=== PATIENT | female | born 1960 ===

== ENCOUNTER 2024-01-17 10:24 | Day surgery (SDC) | payer MEDICARE ==
--- NOTE | 2024-01-17 09:52 | P.GSHP ---
History of Present Illness H&P Date: 01/17/24 CHIEF COMPLAINT: GERD and colon screen HISTORY OF PRESENT ILLNESS: The patient is a 63-year-old female who presents with gastroesophageal reflux disease and need for colon screen. Upper and lower endoscopy were offered for further evaluation and management. PAST MEDICAL HISTORY: Please see list. PAST SURGICAL HISTORY: Please see list. MEDICATIONS: Please see list. ALLERGIES: Please see list. SOCIAL HISTORY: No illicit drug use FAMILY HISTORY: No reports of Crohn disease or ulcerative colitis. REVIEW OF ORGAN SYSTEMS: CONSTITUTIONAL: No reports of fevers or chills. GI: Denies any blood in stools or constipation. PHYSICAL EXAM: VITAL SIGNS: Stable GENERAL: Well-developed pleasant in no acute distress. HEENT: No scleral icterus. Extraocular movements grossly intact. Moist buccal mucosa. NECK: Supple without lymphadenopathy. CHEST: Unlabored respirations. Equal bilateral excursions. CARDIOVASCULAR: Regular rate and rhythm. Distal 2+ pulses. ABDOMEN: Soft, nondistended. MUSCULOSKELETAL: No clubbing, cyanosis, or edema. ASSESSMENT: 1. Gastroesophageal reflux disease 2. Colon screen. PLAN: 1. Recommend proceeding with an upper and lower endoscopy Past Medical History Past Medical History: Hyperlipidemia, Hypertension Additional Past Medical History / Comment(s): occasional skipped heartbeat, difficulty swallowing History of Any Multi-Drug Resistant Organisms: None Reported Past Surgical History: Tubal Ligation Past Anesthesia/Blood Transfusion Reactions: No Reported Reaction Smoking Status: Former smoker - Past Family History Mother Family Medical History: Cancer Additional Family Medical History / Comment(s): liver Father Family Medical History: Hypertension, Myocardial Infarction (PR) Medications and Allergies Home Medications Medication Instructions Recorded Confirmed Type Atorvastatin [Lipitor] 20 mg PO DAILY 01/15/24 01/15/24 History Multivitamins, Thera [Multivitamin 1 tab PO DAILY 01/15/24 01/15/24 History (formulary)] Vit C/E/Zn/Coppr/Lutein/Zeaxan 1 tab PO DAILY 01/15/24 01/15/24 History [Preservision Areds 2 Chew Tab] Xananx 0.25 mg PO DAILY PRN 01/15/24 01/15/24 History carvediloL [Coreg] 3.125 mg PO BID 01/15/24 01/15/24 History lisinopriL [Prinivil] 10 mg PO DAILY 01/15/24 01/15/24 History oxyBUTYnin chloride 5 mg PO DAILY 01/15/24 01/15/24 History Allergies Allergy/AdvReac Type Severity Reaction Status Date / Time cortisone AdvReac Unknown Verified 01/15/24 09:25
[2024-01-17 10:36] VITALS: TEMP 97.8
[2024-01-17] MEDS: LACTATED RINGERS 1,000 ML IV SCH (10:44)
[2024-01-17] MEDS: IV FLUID CONTINUATION 1,000 ML IV ONE (10:45)
[2024-01-17] MEDS ORDERED: LIDOCAINE 1% INJ 10MG/ML (20 ML MDV) ONE (11:45)
[2024-01-17] MEDS ORDERED: PROPOFOL 10 MG/ML 20 ML VIAL IV ONE (11:45)
[2024-01-17 12:32] VITALS: RESP 18
--- NOTE | 2024-01-17 13:05 | P.PCN ---
Date of Procedure: 01/17/24 Description of Procedure: PREOPERATIVE DIAGNOSIS: Colonoscopy screening. POSTOPERATIVE DIAGNOSIS: Colonoscopy screening. Severe sigmoid diverticulosis Severe pandiverticulosis OPERATION: Colonoscopy to the cecum, ileocecal valve and appendiceal orifice. SURGEON: Jenelle Durán MD. ANESTHESIA: MAC. INDICATIONS: The patient is a 63-year-old female who presents for colonoscopy screening. Benefits and risks were described and informed consent was obtained. DESCRIPTION OF PROCEDURE: The patient had undergone Sutab prep. The patient had been brought into the operating room and laid in the left lateral decubitus position. After adequate intravenous sedation, the rectum was examined with 2% lidocaine jelly. No external hemorrhoids were encountered. The rectal tone was within normal limits. No lesions were palpated in the rectal vault. An Olympus colonoscope was advanced until the cecum, ileocecal valve and appendiceal orifice were clearly viewed. The prep was excellent. Scattered diverticulosis was encountered. No colonic polyps were found. No evidence of focal colitis was found. Retroflexion of the scope demonstrated grade 2 internal hemorrhoids without active bleeding or inflammation. The colon was desufflated. The patient had tolerated the procedure well. Withdrawal time was over 6 minutes. FINDINGS: Aronchick preparation quality scale 1 (1-5) Internal hemorrhoids, grade 2 External prolapsed hemorrhoids, grade 2 No arteriovenous malformations. No adenomatous polyps. No focal colitis. Severe pandiverticulosis Severe sigmoid diverticulosis with redundancy requiring abdominal wall pressure RECOMMENDATIONS: Lower endoscopy in 5 years, 2028 Plan - Discharge Summary Discharge Rx Participant: No New Discharge Prescriptions: New Amoxic-Pot Clav 875-125Mg [Augmentin 875-125] 1 each PO Q12HR #10 tab Pantoprazole [Protonix] 40 mg PO DAILY #14 tab Continue lisinopriL [Prinivil] 10 mg PO DAILY carvediloL [Coreg] 3.125 mg PO BID oxyBUTYnin chloride 5 mg PO DAILY Atorvastatin [Lipitor] 20 mg PO DAILY Xananx 0.25 mg PO DAILY PRN PRN Reason: Anxiety Vit C/E/Zn/Coppr/Lutein/Zeaxan [Preservision Areds 2 Chew Tab] 1 tab PO DAILY Multivitamins, Thera [Multivitamin (formulary)] 1 tab PO DAILY Discharge Medication List Atorvastatin [Lipitor] 20 mg PO DAILY 01/15/24 [History] Multivitamins, Thera [Multivitamin (formulary)] 1 tab PO DAILY 01/15/24 [History] Vit C/E/Zn/Coppr/Lutein/Zeaxan [Preservision Areds 2 Chew Tab] 1 tab PO DAILY 01/15/24 [History] Xananx 0.25 mg PO DAILY PRN 01/15/24 [History] carvediloL [Coreg] 3.125 mg PO BID 01/15/24 [History] lisinopriL [Prinivil] 10 mg PO DAILY 01/15/24 [History] oxyBUTYnin chloride 5 mg PO DAILY 01/15/24 [History] Amoxic-Pot Clav 875-125Mg [Augmentin 875-125] 1 each PO Q12HR #10 tab 01/17/24 [Rx] Pantoprazole [Protonix] 40 mg PO DAILY #14 tab 01/17/24 [Rx] Follow up Appointment(s)/Referral(s): Jenelle Durán MD [STAFF PHYSICIAN] - 02/20/24 10:00 am Patient Instructions/Handouts: *Surgery [facility] - (Anesthesia) Discharge Instructions Outpatient Surgery, Diverticulosis (GEN), Diet for Stomach Ulcers and Gastritis (GEN), Diverticulosis Diet (GEN), Esophageal Dilation (GEN) Activity/Diet/Wound Care/Special Instructions: Repeat colonoscopy in 10 years, 2033 Discharge Disposition: HOME SELF-CARE
--- NOTE | 2024-01-17 13:11 | P.PCN ---
Date of Procedure: 01/17/24 Description of Procedure: PREOPERATIVE DIAGNOSIS: Dysphagia. POSTOPERATIVE DIAGNOSIS: Dysphagia. Upper esophageal stricture Acute gastric ulcer without bleeding Diaphragmatic hiatal hernia Gastric polyp OPERATION: Esophagogastroduodenoscopy with rigid dilator over the guidewire 51 Fr. SURGEON: Jenelle Durán MD ANESTHESIA: MAC. INDICATIONS: The patient is a 63-year-old female who presents with dysphagia. Benefits and risks of the procedure were described. Informed consent was obtained. DESCRIPTION: The patient was brought into the endoscopy suite and laid in the left lateral decubitus position. After a timeout was confirmed, the procedure was initiated. An Olympus gastroscope was passed and the stomach was entered. Mild gastritis was identified with acute gastric ulcer without bleeding. The scope was advanced to the duodenum which was unremarkable. Retroflexion the scope confirmed a Hill grade 4 lower esophageal valve. Next using an [place] rigid dilator, a guidewire was placed through the gastroscope. Next the scope was withdrawn. A 51-Welsh rigid [place] dilator was passed carefully along the posterior oropharynx to 50 cm and left in place for 2-3 minutes stretch. The dilator was withdrawn including the guidewire. The scope was reentered along the posterior oropharynx with bleeding of the upper esophageal sphincter without full-thickness tear. No full-thickness injury was encountered. The GI tract was desufflated. The patient tolerated the procedure well. FINDINGS: Squamocolumnar junction unremarkable at 43 cm. Upper esophageal stricture without ulceration Diaphragmatic hiatal hernia, 2 cm Diaphragmatic hiatus at 41 cm from the incisors [place] rigid dilator 51-Welsh completed. Acute gastric ulcer, 3 mm, proximal stomach without bleeding Hill grade 4 lower esophageal valve. LA grade B erosive esophagitis. RECOMMENDATIONS: Repeat upper endoscopy in 4 weeks Protonix 40 mg daily for 2 weeks Augmentin extra strength prescribed
[2024-01-17 13:15] VITALS: BP 115/67; PULSE 67
== END 2024-01-17 13:28 | disposition home or self-care (01) ==
LOC: ORWHC2ENDO 10:24
PROVIDERS: ATTEND Surgery Plastic and Reconstructive Surgery
DX: Z12.11 Encounter for screening for malignant neoplasm of colon (principal); K22.2 Esophageal obstruction; K31.7 Polyp of stomach and duodenum; K44.9 Diaphragmatic hernia without obstruction or gangrene; K25.3 Acute gastric ulcer without hemorrhage or perforation; K57.30 Diverticulosis of large intestine without perforation or abscess without bleeding; I10 Essential (primary) hypertension; E78.5 Hyperlipidemia, unspecified; K21.9 Gastro-esophageal reflux disease without esophagitis; Z79.899 Other long term (current) drug therapy; Z87.891 Personal history of nicotine dependence; Z98.51 Tubal ligation status
CPT/HCPCS: 43248; J2001; J2704; G0121; 45378